=== PATIENT | female | born 1985 | race African-American/Black ===

== ENCOUNTER → 2019-03-21 13:39 | Outpatient (CLI) | payer MEDICAID, SELFPAY ==
--- NOTE | 2019-03-21 08:45 | MASS_PTH ---
PATIENT: RUCHI BOYD LOC: [facility] U#:[id number] AGE/SX: 39/F ROOM: RE03/21/[address]: Dr. 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 SJ:claudio 03/22/19 MICROSCOPIC DESCRIPTION Slides are reviewed. GROSS DESCRIPTION Received in fixative is one container labeled with the patient's name and designated right posterior neck lesion. The specimen consists of an irregular piece of adipose tissue measuring 5 x 4.5 x 3 cm. The external surface is inked. Sections reveal yellow adipose cut surfaces without areas of hemorrhage, necrosis or cystic degeneration. [employer] sections are submitted in five cassettes. / SJ:claudio 03/21/19 TC:1 CPT: 77286
[2019-03-21 11:27] VITALS: BMI 38.5
== END ==
PROVIDERS: Referring Provider Surgery; Visit Provider Surgery
DX: D48.1 Neoplasm of uncertain behavior of connective and other soft tissue (principal)
CPT/HCPCS: 88304; 88305